=== PATIENT | female | born 1980 | race Caucasian/White ===

== ENCOUNTER → 2016-09-20 | Day surgery (SDC) | payer OTHER ==
[~2016-09-20] MED LIST: BACT800T5 PO; LACTATED RINGER'S 1000 ML INJ 1,000 ML ONE; LEVO88TA2 PO; NAPR-576 PO; PROPOFOL 200 MG/20 ML AMP IV ONE
--- NOTE | 2016-09-20 07:53 | GIPROC ---
[facility] [address] [facility], [id number] EGD PROCEDURE REPORT EXAM DATE: 09/20/2016 PATIENT NAME: Estrellita Bettencourt MR #: [id number] BIRTHDATE: 1980 ATTENDING: David Tenorio MD ORDER #: [id number] CHIEF MECHANICAL OFFICER: none STATUS: outpatient INDICATIONS: The patient is a 36 yr old female here for an EGD due to Preoperative assessment PROCEDURE PERFORMED: EGD w/ biopsy MEDICATIONS: None and Per Anesthesia. TOPICAL ANESTHETIC: none CONSENT: The patient understands the risks and benefits of the procedure and understands that these risks include, but are not limited to: sedation, allergic reaction, infection, perforation and/or bleeding. Alternative means of evaluation and treatment include, among others: physical exam, x-rays, and/or surgical intervention. The patient elects to proceed with this endoscopic procedure. medical equipment was checked for proper function. Hand hygiene and appropriate measures for infection prevention was taken. After the risks, benefits and alternatives of the procedure were thoroughly explained, Informed consent was verified, confirmed and timeout was successfully executed by the treatment team. The patient was anesthetized with anesthesia and the EG-[id number] ([id number]) endoscope was introduced through the mouth and advanced to the second portion of the duodenum. Minimal bile reflux. Antrum was biopsied for H. pylori. Retroflexed views revealed a hiatal hernia The gastroscope was then slowly withdrawn and removed. ESOPHAGUS: A 1cm hiatal hernia was noted. ADVERSE EVENTS: There were no complications. IMPRESSIONS: Retroflexed views revealed a hiatal hernia RECOMMENDATIONS: Await biopsy results. Biopsy results will not be ready for 7-10 days. If you don't hear from us in two weeks, call our office for biopsy results. PATIENT CONDITION: fair DISPOSITION: Home REPEAT EXAM: NONE David Tenorio MD eSigned: David Tenorio MD 09/20/2016 7:53 AM cc:
== END | disposition home or self-care (01) ==
LOC: ESDC 06:34
PROVIDERS: ATTEND Surgery
DX: Z01.818 Encounter for other preprocedural examination (principal); K29.70 Gastritis, unspecified, without bleeding; K44.9 Diaphragmatic hernia without obstruction or gangrene
CPT/HCPCS: 00740; 43239; 88305; 88312; J3010; J7120

== ENCOUNTER 2016-10-24 13:33 | Inpatient (IN) | payer OTHER ==
[~2016-10-24] VITALS: Ht 156.2 cm; Wt 99.0 kg
[2016-11-15] MEDS ORDERED: LEXA10TA PO (14:04)
[2016-11-15] MEDS ORDERED: SYNT88TA PO (14:04)
[2016-11-15] MEDS ORDERED: MULT-65 PO (14:05)
[2016-11-18] MEDS ORDERED: SODIUM CHLORID 0.9% 500 ML IV PRN (07:00)
[2016-11-18] MEDS ORDERED: INSULIN HUMAN REGULAR 1,000 UNITS/10 ML VIAL SQ PRN (07:00)
[2016-11-18] MEDS ORDERED: METOPROLOL TARTRATE 25 MG TAB PO PRN (07:00)
[2016-11-18] MEDS ORDERED: CHLORHEXIDINE GLUCONATE 2 % 1 PACK (2 CLOTHS) TOPICAL PRN (07:00)
[2016-11-18] MEDS ORDERED: LACTATED RINGER'S 1000 ML IV PRN (07:00)
[2016-11-18] MEDS ORDERED: SCOPOLAMINE 1.5 MG PATCH T-DERMAL SCH (07:00)
[2016-11-18] MEDS ORDERED: ACETAMINOPHEN 1000 MG/100 ML VIAL IV SCH (07:00)
[2016-11-18] MEDS ORDERED: ceFAZolin 2 GM PREMIX 50 ML IV SCH (07:00)
[2016-11-18] MEDS ORDERED: metroNIDAZOLE 500 MG INJ 100 ML IV SCH (07:00)
[2016-11-18] MEDS ORDERED: APREPITANT 40 MG CAP PO SCH (07:00)
[2016-11-18] MEDS ORDERED: POVIDONE IODINE 5% (ANTISEPSIS KIT) 4 APPLICATIONS EACH NARE PRN (07:00)
[2016-11-18] MEDS ORDERED: ONDANSETRON HCL 4 MG/2 ML VIAL IV PUSH SCH (07:00)
[2016-11-18] MEDS ORDERED: FAMOTIDINE 20 MG/2 ML VIAL ONE (09:11)
[2016-11-18] MEDS ORDERED: MIDAZOLAM HCL 2 MG/2 ML VIAL ONE (10:00)
[2016-11-18] MEDS ORDERED: METHYLENE BLUE 100 MG/10 ML VIAL NG ONE (10:47)
[2016-11-18] MEDS: D5-1/2 NS + KCL 20 MEQ INJ 1,000 ML IV SCH ×3 (11:15→19:35)
[2016-11-18] MEDS ORDERED: ACETAMINOPHEN 325MG/HYDROcodone 7.5MG/15ML UDC PO PRN (11:45)
[2016-11-18] MEDS ORDERED: HYDROmorphone HCL PF 1 MG/ML VIAL IV PUSH PRN (11:45)
[2016-11-18] MEDS ORDERED: ENALAPRILAT 1.25 MG/ML VIAL IV PUSH PRN (11:45)
[2016-11-18] MEDS ORDERED: SODIUM CHLORIDE 0.9% FLUSH 10 ML FLUSH PRN (11:45)
[2016-11-18] MEDS ORDERED: Post-op Orders (for Pharmacy) MISC OTHER ONE (11:45)
[2016-11-18] MEDS ORDERED: *morphine SULFATE 8 MG/ML PERIprocedure ONLY ONE ×2 (11:56→12:07)
[2016-11-18] MEDS ORDERED: PHENYLEPH/NS 1000 MCG/10 ML SYR IV ONE (12:00)
[2016-11-18] MEDS ORDERED: LACTATED RINGER'S 1000 ML INJ 1,000 ML IV ONE (12:00)
[2016-11-18] MEDS ORDERED: ONDANSETRON HCL 4 MG/2 ML VIAL IV PUSH ONE (12:00)
[2016-11-18] MEDS ORDERED: NEOSTIGMINE 3 MG/3 ML SYR IV ONE (12:00)
[2016-11-18] MEDS: ONDANSETRON HCL 4 MG/2 ML VIAL IV PRN (12:00)
[2016-11-18] MEDS ORDERED: diphenhydrAMINE HCL 50 MG/ML VIAL IV PRN (12:00)
[2016-11-18] MEDS ORDERED: PROPOFOL 200 MG/20 ML AMP IV ONE (12:00)
[2016-11-18] MEDS ORDERED: diphenhydrAMINE HCL ELIXIR 12.5 MG/5 ML CUP PO PRN (12:00)
[2016-11-18] MEDS ORDERED: fentaNYL CITRATE 250 MCG/5 ML AMP ONE (12:00)
[2016-11-18] MEDS ORDERED: DO NOT ADM ANY ANTICOAGULANT DRUGS PRN (12:30)
[2016-11-18] MEDS ORDERED: *HYDROmorphone PF 1 MG VIAL PERIprocedural Use ONLY ONE (14:47)
[2016-11-18] MEDS: metroNIDAZOLE 500 MG INJ 100 ML IV SCH ×2 (15:00→22:21)
[2016-11-18] MEDS: ENOXAPARIN SODIUM 40 MG/0.4 ML SYRINGE SQ SCH (16:00)
[2016-11-18] MEDS: METOCLOPRAMIDE HCL 10 MG/2 ML VIAL IV PUSH SCH (18:00)
[2016-11-18] MEDS: SODIUM CHLORIDE 0.9% FLUSH 10 ML FLUSH IV FLUSH SCH (19:39)
[2016-11-18 20:00] VITALS: BP 109/73; PULSE 82; RESP 18; TEMP 97.4; O2SAT 100
[2016-11-18 20:10] VITALS: O2SAT 98
[2016-11-18] MEDS: RESP: ALBUTEROL 2.5 MG/3 ML NEB (SCH) INH (20:10)
[2016-11-18] MEDS: ACETAMINOPHEN 325MG/HYDROcodone 7.5MG/15ML UDC PO PRN (23:59)
[2016-11-19] VITALS (8 sets, daily range): BP systolic 119–135; BP diastolic 75–90; PULSE 68–85; RESP 18; TEMP 95.9–97; O2SAT 94–100
[2016-11-19] MEDS: D5-1/2 NS + KCL 20 MEQ INJ 1,000 ML IV SCH ×5 (00:03→16:45)
[2016-11-19] MEDS: RESP: ALBUTEROL 2.5 MG/3 ML NEB (SCH) INH ×5 (00:11→15:39)
[2016-11-19 05:21] LABS: AUTOMATED NEUTROPHIL # 12.3 TH/MM3 (1.8-7.7); BASOPHIL # 0.1 TH/MM3 (0-0.2); BASOPHIL % 0.4 % (0.0-2.0); EOSINOPHIL % 0.1 % (0.0-4.0); HEMATOCRIT 37.9 % (35.0-46.0); HEMO FLAGS DIFF FINAL; LYMPH % 11.7 % (9.0-44.0); LYMPHOCYTE # 1.7 TH/MM3 (1.0-4.8); MEAN CELL VOLUME 85.4 FL (80.0-100.0); MEAN CORPUSCULAR HEMOGLOBIN 28.6 PG (27.0-34.0); MEAN CORPUSCULAR HGB CONC 33.4 % (32.0-36.0); MONO % 3.7 % (0.0-8.0); NEUT % 84.1 % (16.0-70.0); PLATELET COUNT 286 TH/MM3 (150-450); RED BLOOD COUNT 4.44 MIL/MM3 (4.00-5.30); RED CELL DISTRIBUTION WIDTH 13.7 % (11.6-17.2); WHITE BLOOD COUNT 14.6 TH/MM3 (4.0-11.0)
[2016-11-19 05:34] LABS: BICARBONATE 25.2 MEQ/L (21.0-32.0); MAGNESIUM 1.9 MG/DL (1.5-2.5); POTASSIUM 3.5 MEQ/L (3.5-5.1)
[2016-11-19] MEDS: ACETAMINOPHEN 325MG/HYDROcodone 7.5MG/15ML UDC PO PRN ×3 (05:58→18:23)
[2016-11-19] MEDS: metroNIDAZOLE 500 MG INJ 100 ML IV SCH (05:58)
[2016-11-19] MEDS: METOCLOPRAMIDE HCL 10 MG/2 ML VIAL IV PUSH SCH ×2 (05:58)
[2016-11-19] MEDS: SODIUM CHLORIDE 0.9% FLUSH 10 ML FLUSH IV FLUSH SCH (07:35)
[2016-11-19] MEDS ORDERED: PANTOPRAZOLE SOD 40 MG DELAYED RELEASE TAB PO SCH (09:00)
[2016-11-19] MEDS ORDERED: LEVOTHYROXINE SODIUM 88 MCG TAB PO SCH (09:45)
--- NOTE | 2016-11-19 10:32 | HHI.PR ---
Subjective Subjective Notes 36yo female POD#1 laparoscopic VSG. Sitting up in bed. Complains of some nausea relieved with ondansetron. Slowly increasing PO fluids to 60ml every 30 min Objective Vitals/I&O Vital Signs Date Time Temp Pulse Resp B/P Pulse Ox O2 Delivery O2 Flow Rate FiO2 11/19/16 08:10 97 21 11/19/16 08:00 95.9 68 18 122/75 100 11/19/16 04:00 97.0 83 18 119/78 94 11/19/16 00:13 95 21 11/19/16 00:00 97.0 85 18 130/84 96 11/18/16 20:10 98 21 11/18/16 20:00 97.4 82 18 109/73 100 11/18/16 15:15 75 16 142/80 98 Nasal Cannula 2 11/18/16 14:00 83 16 148/79 99 Nasal Cannula 2 11/18/16 13:00 70 16 148/84 98 Nasal Cannula 4 11/18/16 12:45 70 16 147/85 98 Nasal Cannula 4 11/18/16 12:30 63 16 143/78 98 Nasal Cannula 4 11/18/16 12:15 64 16 134/78 98 Nasal Cannula 4 11/18/16 12:00 68 16 142/80 95 Room Air 11/18/16 11:50 97.6 76 16 122/58 98 Simple Mask 10 Vital Signs Date Time Temp Pulse Resp B/P Pulse Ox O2 Delivery O2 Flow Rate FiO2 11/19/16 08:10 97 21 11/19/16 08:00 95.9 68 18 122/75 11/18/16 15:15 Nasal Cannula 2 Labs Laboratory Tests Test 11/19/16 04:27 White Blood Count 14.6 Red Blood Count 4.44 Hemoglobin 12.7 Hematocrit 37.9 Mean Corpuscular Volume 85.4 Mean Corpuscular Hemoglobin 28.6 Mean Corpuscular Hemoglobin 33.4 Concent Red Cell Distribution Width 13.7 Platelet Count 286 Mean Platelet Volume 8.0 Neutrophils (%) (Auto) 84.1 Lymphocytes (%) (Auto) 11.7 Monocytes (%) (Auto) 3.7 Eosinophils (%) (Auto) 0.1 Basophils (%) (Auto) 0.4 Neutrophils # (Auto) 12.3 Lymphocytes # (Auto) 1.7 Monocytes # (Auto) 0.5 Eosinophils # (Auto) 0.0 Basophils # (Auto) 0.1 CBC Comment DIFF FINAL Differential Comment Sodium Level 137 Potassium Level 3.5 Chloride Level 105 Carbon Dioxide Level 25.2 Anion Gap 7 Blood Urea Nitrogen 4 Creatinine 0.54 Estimat Glomerular Filtration 127 Rate Random Glucose 130 Calcium Level 7.8 Magnesium Level 1.9 Cardiovascular: Regular Lungs: Clear Abdomen: Post-op tenderness Extremities: Perfused Wound Wound : Wound Location: Abdomen Appearance: Clean & Dry A/P Assessment and Plan Continue with frequent ambulation Continue to increase fluids as tolerated Binder to abdomen for support The exam, history, and the medical decision-making described in the above note were completed with the assistance of the mid-level provider. I reviewed and agree with the findings presented. I attest that I had a [id number] encounter with the patient on the same day, and personally performed and documented my assessment and findings in the medical record. Discharge Planning D/C home probably later today Angelo Schulz Nov 19, 2016 10:32 Jose Wagner MD Nov 23, 2016 18:02
[2016-11-19] MEDS: ONDANSETRON HCL 4 MG/2 ML VIAL IV PRN ×2 (11:29→18:30)
[2016-11-19] MEDS ORDERED: METOCLOPRAMIDE HCL 10 MG/2 ML VIAL IV PUSH PRN (12:00)
[2016-11-19] MEDS: ENOXAPARIN SODIUM 40 MG/0.4 ML SYRINGE SQ SCH (14:36)
[2016-11-19] MEDS ORDERED: LEVS0.124 SL (17:12)
[2016-11-19] MEDS ORDERED: DEXAMETHASONE SOD PHOS 20 MG/5 ML VIAL IV PUSH ONE (18:00)
[2016-11-20] MEDS ORDERED: ESCITALOPRAM OXALATE 10 MG TAB PO SCH (09:00)
--- NOTE | 2016-11-22 22:20 | MP ---
cc: RUI WAGNER M.D. DATE OF SURGERY 11/18/2016 DATE OF 1980 PREOPERATIVE DIAGNOSIS Morbid obesity with BMI of 41. POSTOPERATIVE DIAGNOSIS Morbid obesity with BMI of 41. PROCEDURE Laparoscopic vertical sleeve gastrectomy over a 36-[place] bougie. SURGEON Rui Wagner MD PORT PATROL OFFICER David Tenorio MD. Dr. Tenorio's assistance was necessary for the procedure due to the complexity of the procedure. Dr. Tenorio was utilized for manipulation and exposure during the procedure. Dr. Tenorio was present for the entire procedure. The printer assistant provided by [facility] was utilized managing the camera. ANESTHESIA General endotracheal anesthesia. ESTIMATED BLOOD LOSS Scant. FINDINGS Fatty liver. SPECIMENS None. COMPLICATIONS None. OPERATION The patient was brought to the operating room and placed on the operating table in the supine position. Bilateral sequential inflation devices were placed on the lower extremities. General anesthesia was instituted. Antibiotics were initiated. The abdomen was prepped and draped sterilely. A point 15 cm distal to the xiphoid in the midline was anesthetized with 0.25% Marcaine with epinephrine. A skin incision was made. A 5 mm OptiView port was placed under direct vision and a pneumoperitoneum created. Under direct vision three 5 mm left upper quadrant, one 15 mm right upper quadrant and one 5 mm right upper quadrant ports were placed. Prior to placement of all ports the skin and peritoneum were anesthetized with 0.25% Marcaine with epinephrine. The patient was placed in reverse Trendelenburg position left side up. A [place]-Flex retractor was placed. The left lobe of the liver was retracted. The vasculature along the greater curvature of the stomach was using a Harmonic scalpel starting a distance 5 cm proximal to the pylorus and carried towards the angle of His. The angle of His was taken down bluntly. Posterior ligamentous attachments were sharply . A 36-[place] ViSiGi bougie was placed at the start of the case and placed on suction. Division of the stomach started 5 cm proximal to the pylorus and carried towards the angle of His to completely excise approximately 80% of the stomach. This was performed using an [place] Flex stapler at the pylorus. The first firing was with a black load, followed by a green load and four gold loads. All staple loads were reinforced with SeamGuard. A distance of 2 cm was left from the angle incisura and the staple line and a distance of 1 cm left from the GE junction and the staple line. The pylorus was then occluded, methylene blue tinged saline was instilled. There was no evidence of extravasation. The gastrocolic ligament was then sutured to the posterior leaflet of the SeamGuard using 2-0 Vicryl suture in a running manner. Bleeding points were controlled with Evicel. The excised stomach was removed from the peritoneal cavity through the 15 mm port site. The fascia at the 15 mm port site was approximated with 0 Vicryl suture. The CO2 was then released. All ports were removed. All skin incisions were closed with 4-0 Monocryl. The abdominal wall was cleaned and a sterile dressing placed. The patient was awakened and taken to the recovery room. MD MARITA Torres/LISY /9:45 AM /9:51 PM PRECIOUS
== END 2016-11-19 20:09 | disposition home or self-care (01) | DRG 621 ==
LOC: HSDI 11-18 05:20 → N07A 11-18 15:37
PROVIDERS: ADMIT Surgery; ATTEND Surgery
PROC: 0DB64Z3 Excision of Stomach, Percutaneous Endoscopic Approach, Vertical (ICD-10-PCS; principal; 2016-11-18 10:13)
DX: E66.01 Morbid (severe) obesity due to excess calories (principal); K76.0 Fatty (change of) liver, not elsewhere classified; E55.9 Vitamin D deficiency, unspecified; E03.9 Hypothyroidism, unspecified; K21.9 Gastro-esophageal reflux disease without esophagitis; K44.9 Diaphragmatic hernia without obstruction or gangrene; F41.9 Anxiety disorder, unspecified; Z68.41 Body mass index [BMI] 40.0-44.9, adult
CPT/HCPCS: 80048; 83735; 85025; 94150; 94640; 94664; J0131; J0690; J1100; J1170; J1650; J2250; J2270; J2370; J2405; J2710; J2765; J3010; J3480; J7120; J7613; J8501